=== PATIENT | female | born 1990 | race African-American/Black ===

== ENCOUNTER 2018-01-18 08:03 | Emergency (ER) | payer MEDICAID ==
[~2018-01-18] VITALS: Ht 160 cm; Wt 52.0 kg
[~2018-01-18 08:03] MED LIST: ALBUTEROL
[2018-01-18 08:55] VITALS: BP 135/97
== END 2018-01-18 09:55 | disposition left against medical advice (07) ==
LOC: ER 08:03
DX: Z53.21 Procedure and treatment not carried out due to patient leaving prior to being seen by health care provider (principal); Z88.6 Allergy status to analgesic agent
CPT/HCPCS: 81025

== ENCOUNTER 2018-10-02 02:19 | Emergency (ER) | payer MEDICAID ==
[~2018-10-02] VITALS: Ht 160 cm; Wt 55.0 kg
[2018-10-02 03:40] LABS: BASOPHILS % 0.7 % (0.0-2.0); HEMATOCRIT. 37.3 % (36.0-48.0); HEMOGLOBIN. 12.7 g/dL (12.0-16.0); LYMPHOCYTES % 24.5 % (20.0-50.0); MEAN CORPUSCULAR HEMOGLOBIN 32.2 pg (28.0-32.0); MEAN CORPUSCULAR VOLUME 94.7 fL (81.0-99.0); MEAN PLATELET VOLUME 8.6 fl (7.4-10.4); MONOCYTES % 6.9 % (2.0-8.0); NEUTROPHILS % 64.9 % (40.0-76.0); PLATELET 243 x1000/uL (130-400); RED BLOOD CELL COUNT 3.94 mill/uL (4.2-5.4); RED CELL DISTRIBUTION WIDTH 13.9 % (11.6-14.6)
[2018-10-02 03:42] LABS: CHLORIDE 105 mEq/L (98-107)
[2018-10-02 03:43] LABS: INR 0.9; PROTHROMBIN TIME 9.5 sec (9.6-11.0)
[2018-10-02] MEDS ORDERED: METOCLOPRAMIDE HCL 10MG/2ML VIAL IV ONE (03:45)
[2018-10-02] MEDS ORDERED: ACETAMINOPHEN 325MG TABLET PO ONE (03:45)
[2018-10-02 04:05] LABS: B-HCG QUANTITATIVE 94311 mIU/mL (<3)
[2018-10-02 05:22] LABS: CLARITY URINE CLEAR (CLEAR); COLOR URINE YELLOW (YELLOW); KETONES URINE NEGATIVE (NEGATIVE); LEUKOCYTE ESTERASE URINE TRACE (NEGATIVE); NITRITE URINE NEGATIVE (NEGATIVE); OCCULT BLOOD URINE NEGATIVE (NEGATIVE); PROTEIN URINE NEGATIVE (NEGATIVE); SPECIFIC GRAVITY URINE 1.006 (1.005-1.030); UROBILINOGEN URINE 0.2 E.U./dL (0.2-1.0)
[2018-10-02 06:02] VITALS: BP 130/80
== END 2018-10-02 06:09 | disposition home or self-care (01) ==
LOC: ER 02:19
DX: O23.41 Unspecified infection of urinary tract in pregnancy, first trimester (principal); J45.909 Unspecified asthma, uncomplicated; Z3A.11 11 weeks gestation of pregnancy; Z88.6 Allergy status to analgesic agent; Z79.899 Other long term (current) drug therapy; Z90.89 Acquired absence of other organs
CPT/HCPCS: 36415; 76801; 80053; 81003; 81025; 83880; 84484; 84702; 85025; 85610; 86850; 86870; 86900; 86901; 96374; 99284; J2765